=== PATIENT | male | born 1935 | race Caucasian/White ===

== ENCOUNTER → 2017-01-10 | Outpatient (CLI) | payer MEDICARE | LOC: EMI 10:00 | DX: R26.0 Ataxic gait (principal); G31.9 Degenerative disease of nervous system, unspecified; J32.8 Other chronic sinusitis | CPT/HCPCS: 70553; A9576; J7050 ==

== ENCOUNTER → 2017-01-10 | Outpatient (CLI) | payer MEDICARE | LOC: LAB 09:52 | DX: R26.0 Ataxic gait (principal) | CPT/HCPCS: 36415; 82565; 84520 ==

== ENCOUNTER → 2017-01-26 | Outpatient (CLI) | payer MEDICARE | LOC: LAB 09:16 | DX: R73.01 Impaired fasting glucose (principal); G62.9 Polyneuropathy, unspecified; E53.8 Deficiency of other specified B group vitamins | CPT/HCPCS: 36415; 82607; 83036; 83921; 86334 ==

== ENCOUNTER 2017-01-27 17:11 | Emergency (ER) | payer MEDICARE ==
[2017-01-27 19:49] LABS: HEMOGLOBIN 11.7 gm/dl (14.0-17.5); RED BLOOD COUNT 3.91 M/UL (4.20-5.50); WHITE BLOOD COUNT 5.7 K/UL (4.5-11.0)
[2017-01-27 20:10] LABS: BUN/CREATININE RATIO 19 (0-10)
== END 2017-01-27 22:59 | disposition home or self-care (01) ==
LOC: ER1 17:11
PROVIDERS: Student in an Organized Health Care Education/Training Program
DX: I44.7 Left bundle-branch block, unspecified (principal); R22.41 Localized swelling, mass and lump, right lower limb; Z79.82 Long term (current) use of aspirin; Z79.1 Long term (current) use of non-steroidal anti-inflammatories (NSAID)
CPT/HCPCS: 36415; 71010; 80053; 81001; 83880; 85025; 85610; 85730; 87086; 93005; 99284

== ENCOUNTER → 2017-01-28 | Outpatient (CLI) | payer MEDICARE | LOC: US 12:31 | DX: M79.89 Other specified soft tissue disorders (principal); R22.42 Localized swelling, mass and lump, left lower limb | CPT/HCPCS: 93971 ==

== ENCOUNTER → 2017-02-07 | Outpatient (CLI) | payer MEDICARE | LOC: MRI 10:44 | DX: R26.0 Ataxic gait (principal); M50.31 Other cervical disc degeneration, high cervical region | CPT/HCPCS: 72141 ==